=== PATIENT | male | born 1985 | race Caucasian/White ===

== ENCOUNTER 2018-02-11 22:49 | Emergency (ER) | payer MEDICAID ==
[~2018-02-11] VITALS: Ht 182.9 cm; Wt 86.2 kg
[2018-02-11 23:05] VITALS: BP 119/63
== END 2018-02-11 23:43 | disposition home or self-care (01) ==
LOC: ER 22:49
DX: S90.562A Insect bite (nonvenomous), left ankle, initial encounter (principal); L03.116 Cellulitis of left lower limb; F17.200 Nicotine dependence, unspecified, uncomplicated; Z98.890 Other specified postprocedural states; Z60.2 Problems related to living alone; W57.XXXA Bitten or stung by nonvenomous insect and other nonvenomous arthropods, initial encounter; Y93.89 Activity, other specified; Y92.89 Other specified places as the place of occurrence of the external cause; Y99.8 Other external cause status
CPT/HCPCS: 99283; A4606; Z7610

== ENCOUNTER 2018-06-19 04:02 | Emergency (ER) | payer MEDICAID ==
[~2018-06-19] VITALS: Ht 182.9 cm; Wt 88.5 kg
[2018-06-19 04:20] VITALS: BP 133/76
[2018-06-19] MEDS ORDERED: ONDANSETRON 4 MG TAB.RAPDIS SL ONE (05:00)
[2018-06-19] MEDS ORDERED: PENICILLIN V POTASSIUM 500 MG TABLET PO ONE ×2 (05:00→05:02)
[2018-06-19] MEDS ORDERED: HYDROCODONE/APAP 10/325MG 1 EA TABLET PO ONE (05:00)
[2018-06-19] MEDS ORDERED: ONDANSETRON 4 MG TAB.RAPDIS ONE (05:02)
[2018-06-19] MEDS ORDERED: HYDROCODONE/APAP 10/325MG 1 EA TABLET ONE (05:02)
--- NOTE | 2018-06-19 05:05 | NUR ---
all ordered meds given.
--- NOTE | 2018-06-19 05:15 | NUR ---
Patient discharged to home in stable condition. Written and verbal after care instructions given. Patient verbalizes understanding of instruction. Patient left facility on foot with steady gait. Instructed not to drive. Per pt said he lives down the street and will call his to come pick him up. No iv access on pt. No s/s of acute distress or sob noted.
== END 2018-06-19 05:21 | disposition home or self-care (01) ==
LOC: ER 04:02
DX: K08.89 Other specified disorders of teeth and supporting structures (principal); R53.1 Weakness; F17.200 Nicotine dependence, unspecified, uncomplicated; Z98.890 Other specified postprocedural states; Z60.2 Problems related to living alone
CPT/HCPCS: Q0162

== ENCOUNTER 2020-02-11 20:01 | Emergency (ER) | payer MEDICAID ==
[~2020-02-11] VITALS: Ht 182.9 cm; Wt 86.2 kg
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
[2020-02-11] MEDS ORDERED: IBUPROFEN 400 MG TABLET PO ONE (20:30)
[2020-02-11] MEDS ORDERED: IBUPROFEN 400 MG TABLET ONE (20:37)
--- NOTE | 2020-02-11 20:39 | NUR ---
EMT AT BEDSIDE FOR EKG
[2020-02-11 21:25] VITALS: BP 132/79
--- NOTE | 2020-02-11 21:25 | NUR ---
Patient discharged to home in stable condition. Written and verbal after care instructions given. Patient verbalizes understanding of instruction and RX. Pt denies pain, vss.
== END 2020-02-11 21:26 | disposition home or self-care (01) ==
LOC: ER 20:04
DX: S16.1XXA Strain of muscle, fascia and tendon at neck level, initial encounter (principal); M94.0 Chondrocostal junction syndrome [Tietze]; V49.49XA Driver injured in collision with other motor vehicles in traffic accident, initial encounter; Y93.89 Activity, other specified; Y92.488 Other paved roadways as the place of occurrence of the external cause; Y99.8 Other external cause status
CPT/HCPCS: 71045-TC